=== PATIENT | female | born 1995 | race Native Hawaiian/Other Pacific Islander ===

== ENCOUNTER 2016-12-26 19:09 | Observation (INO) | payer MEDICAID ==
[2016-12-26] MEDS ORDERED: Lactated Ringers 1,000 ML IV ONE (20:51)
[2016-12-26] MEDS ORDERED: Ketorolac 30 MG/ML SDV IVPUSH ONE (20:52)
[2016-12-26] MEDS: Sodium Chloride 0.9% 10 ML Syringe FLUSH PRN (20:58)
[2016-12-26] MEDS ORDERED: Ondansetron 4 MG Tab.DIS PO ONE (21:00)
--- NOTE | 2016-12-26 21:06 | EDM.PDOC ---
ED HISTORY OF PRESENT ILLNESS - General Chief Complaint: Respiratory Problem Stated Complaint: DIFFICULTY BREATHING Time Seen by Provider: 12/26/16 19:45 Source: Reports: Patient, RN History Limitations: Reports: No limitations - History of Present Illness INITIAL COMMENTS - FREE TEXT/NARRATIVE: 21 yo female presents with a 4 days hx of respiratory sx's. Initially, she thought it was just a cold. Did have a fever initially, and took acetaminophen for this, but has not taken any for a couple days. This morning developed pleuritic L upper chest pain associated with some subjective SOB. She has a cough with some abdominal wall tenderness from coughing. Cough non-productive. No recent calf pain or LE edema. No dysuria. Symptom Onset Date: 12/22/16 Timing/Duration: Reports: Day(s): Severity: moderate Location, General: Reports: chest (L upper) Quality: Reports: Sharp, Stabbing Improves with: Reports: None Worsens with: Reports: Breathing Context, General: Reports: Other (URI sx's for 4 days) Associated Symptoms: Reports: chest pain, cough, fever/chills (now resolved.), nausea/vomiting (nausea only today without vomiting.), shortness of breath Treatment(s) PRODUCTION ADMINISTRATIVE ASSISTANT: Reports: Acetaminophen (none for over 2 days.) - Related Data Allergies/ADRs: Allergies Allergy/AdvReac Type Severity Reaction Status Date / Time No Known Allergies Allergy Verified 12/26/16 19:19 Home Meds: Home Meds Ibuprofen [Motrin] 400 mg PO QID PRN 12/26/16 [History] Levofloxacin [Levaquin] 500 mg PO Q24H #7 tablet 12/26/16 [Rx] Ondansetron [Zofran ODT] 4 mg PO Q6H PRN #7 tab.dis 12/26/16 [Rx] guaiFENesin [Robitussin] 100 mg PO Q6H 12/26/16 [History] Past Medical History - Past Health History Medical/Surgical History: Denies Medical/Surgical History Social & Family History - Tobacco Use Smoking Status *Q: Current Every Day Smoker Years of Tobacco use: 10 Packs/Tins Daily: 0.5 Second Hand Smoke Exposure: Yes - Caffeine Use Caffeine Use: Reports: Soda - Alcohol Use Days Per Week of Alcohol Use: 0 - Recreational Drug Use Recreational Drug Use: No ED ROS GENERAL - Review of Systems Review Of Systems: See Below Constitutional: Reports: fever, chills. Denies: weakness, fatigue, night sweats , diaphoresis, decreased appetite HEENT: Reports: Rhinitis. Denies: Dental pain, Ear discharge, Ear pain, Eye discharge, Hearing loss, Nosebleed, Nose pain, Sinus problem, Throat pain, Throat swelling, Vertigo, Vision change Respiratory: Reports: shortness of breath, pleuritic chest pain, cough. Denies : wheezing, sputum, hemoptysis Cardiovascular: Reports: No symptoms Endocrine: Reports: no symptoms GI/Abdominal: Reports: Abdominal pain (abdominal wall with coughing only. ), Nausea. Denies: Anorexia, Black stool, Bloody stool, Constipation, Diarrhea, Decreased appetite, Distension, Flatus, Hematemesis, Hematochezia, Melena, Stool incontinence, Vomiting : Reports: no symptoms Musculoskeletal: Reports: no symptoms Skin: Reports: no symptoms Neurological: Reports: no symptoms Psychiatric: Reports: No symptoms ED EXAM, GENERAL - Physical Exam Exam: See Below Exam Limited By: No limitations General Appearance: alert, WD/WN, no apparent distress Eye Exam: bilateral eye: normal inspection, PERRL Ears: normal external exam, normal canal, hearing grossly normal, normal TMs Ear Exam: bilateral ear: auricle normal, canal normal, TM normal Nose: normal inspection, normal mucosa, no blood Throat/Mouth: Normal inspection, Normal lips, Normal oropharynx, Normal voice, No airway compromise Head: atraumatic, normocephalic Neck: normal inspection, supple, non-tender Respiratory/Chest: no respiratory distress, lungs clear, normal breath sounds, no accessory muscle use, chest non-tender Cardiovascular: regular rate, rhythm, no edema, tachycardia GI/Abdominal: normal bowel sounds, soft, non tender, no distention Back Exam: normal inspection, full range of motion, CVA tenderness (L). No: CVA tenderness (R) Extremities: normal inspection, normal range of motion, non-tender, no pedal edema Neurological: alert, oriented, CN II-XII intact, normal cognition, normal reflexes, no motor/sensory deficits Psychiatric: normal affect, normal mood Skin Exam: Warm, Dry, Intact, Normal color, No rash Lymphatic: no adenopathy Course - Vital Signs Text/Narrative:: LR 1000 ml IV, Toradol 30 mg IV, Zofran ODT 4 mg SL CXR(per Dr. Helm) negative CT abd with contrast-negative Levaquin 500 mg po Last Recorded V/S: Last Vital Signs Temp 36.7 C 12/26/16 19:22 Pulse 138 H 12/26/16 19:22 Resp 20 12/26/16 19:22 BP 120/46 L 12/26/16 19:22 Pulse Ox 99 12/26/16 19:22 - Orders/Labs/Meds Orders: Active Orders 24 hr Category Date Time Status Abdomen w Cont [CT] Stat Exams 12/26/16 21:28 Ordered CXR [Chest 2V] [CR] Stat Exams 12/26/16 19:53 Taken CULTURE BLOOD [BC] Routine Lab 12/26/16 21:05 Received CULTURE BLOOD [BC] Urgent Lab 12/26/16 21:00 Received CULTURE URINE [RM] Stat Lab 12/26/16 21:28 Ordered Lactated Ringers [Ringers, Lactated] 1,000 ml Med 12/26/16 20:51 Active IV BOLUS Sodium Chloride 0.9% [Saline Flush] Med 12/26/16 20:57 Active 10 ml FLUSH ASDIRECTED PRN Saline Lock Insert [OM.PC] Routine Oth 12/26/16 20:57 Ordered Medication Orders Lactated Ringer's (Ringers, Lactated) 1,000 mls @ 1,000 mls/hr IV BOLUS ONE Stop: 12/26/16 21:50 Last Admin: 12/26/16 21:00 Dose: 1,000 mls/hr Sodium Chloride (Saline Flush) 10 ml FLUSH ASDIRECTED PRN PRN Reason: Keep Vein Open Last Admin: 12/26/16 20:58 Dose: 10 ml Labs: Laboratory Tests 12/26/16 12/26/16 12/26/16 Range/Units 19:36 20:05 20:15 WBC 30.7 H* (4.5-12.0) X10-3/uL RBC 5.01 (3.23-5.20) x10(6)uL Hgb 15.3 (11.5-15.5) g/dL Hct 44.7 (30.0-51.3) % MCV 89.2 (80-96) fL MCH 30.6 (27.7-33.6) pg MCHC 34.3 (32.2-35.4) g/dL RDW 11.8 (11.5-15.5) % Plt Count 306 (125-369) X10(3)uL MPV 7.3 L (7.4-10.4) fL Add Manual Diff Yes Neutrophils % (Manual) 89 H (46-82) % Band Neutrophils % 3 (0-6) % Lymphocytes % (Manual) 4 L (13-37) % Monocytes % (Manual) 3 L (4-12) % Basophils % (Manual) 1 (0-2) % D-Dimer, Quantitative (100-400) ng/mL Lactic Acid (0.5-2.2) mmol/L Amylase (28-100) U/L Urine Color Yellow (YELLOW) Urine Appearance Clear (CLEAR) Urine pH 5.0 (5.0-6.5) Ur Specific [place] 1.010 (1.010-1.025) Urine Protein Trace (NEGATIVE) mg/dL Urine Glucose (UA) Normal (NEGATIVE) mg/dL Urine Ketones 15 H (NEGATIVE) mg/dL Urine Occult Blood Negative (NEGATIVE) Urine Nitrite Negative (NEGATIVE) Urine Bilirubin Small H (NEGATIVE) Urine Urobilinogen Normal (NEGATIVE) mg/dL Ur Leukocyte Esterase Negative (NEGATIVE) Urine RBC 0-5 (0) Urine WBC 0-5 (0) Ur Squamous Epith Cells Moderate H (NS,R,O) Urine Bacteria Few H (NS) Urine HCG, Qual Negative (NEGATIVE) 12/26/16 12/26/16 12/26/16 Range/Units 20:15 20:15 21:00 WBC (4.5-12.0) X10-3/uL RBC (3.23-5.20) x10(6)uL Hgb (11.5-15.5) g/dL Hct (30.0-51.3) % MCV (80-96) fL MCH (27.7-33.6) pg MCHC (32.2-35.4) g/dL RDW (11.5-15.5) % Plt Count (125-369) X10(3)uL MPV (7.4-10.4) fL Add Manual Diff Neutrophils % (Manual) (46-82) % Band Neutrophils % (0-6) % Lymphocytes % (Manual) (13-37) % Monocytes % (Manual) (4-12) % Basophils % (Manual) (0-2) % D-Dimer, Quantitative 368 (100-400) ng/mL Lactic Acid 2.2 (0.5-2.2) mmol/L Amylase 51 (28-100) U/L Urine Color (YELLOW) Urine Appearance (CLEAR) Urine pH (5.0-6.5) Ur Specific [place] (1.010-1.025) Urine Protein (NEGATIVE) mg/dL Urine Glucose (UA) (NEGATIVE) mg/dL Urine Ketones (NEGATIVE) mg/dL Urine Occult Blood (NEGATIVE) Urine Nitrite (NEGATIVE) Urine Bilirubin (NEGATIVE) Urine Urobilinogen (NEGATIVE) mg/dL Ur Leukocyte Esterase (NEGATIVE) Urine RBC (0) Urine WBC (0) Ur Squamous Epith Cells (NS,R,O) Urine Bacteria (NS) Urine HCG, Qual (NEGATIVE) Meds: Medications Generic Name Dose Route Start Last Admin Trade Name Freq PRN Reason Stop Dose Admin Lactated Ringer's 1,000 mls @ 1,000 mls/hr 12/26/16 20:51 12/26/16 21:00 Ringers, Lactated IV 12/26/16 21:50 1,000 mls/hr BOLUS ONE Administration Sodium Chloride 10 ml 12/26/16 20:57 12/26/16 20:58 Saline Flush FLUSH 10 ml ASDIRECTED PRN Administration Keep Vein Open Discontinued Medications Generic Name Dose Route Start Last Admin Trade Name Freq PRN Reason Stop Dose Admin Ketorolac Tromethamine 30 mg 12/26/16 20:52 12/26/16 21:02 Toradol IVPUSH 12/26/16 20:53 30 mg ONETIME ONE Administration Ondansetron HCl 4 mg 12/26/16 21:00 12/26/16 21:02 Zofran Odt PO 12/26/16 21:01 4 mg ONETIME ONE Administration Departure - Departure Time of Disposition: 22:31 Disposition: Home, Self-Care 01 Condition: fair Clinical Impression: Pleuritic chest pain Leukocytosis Qualifiers: Leukocytosis type: unspecified Qualified Code(s): D72.829 - Elevated white blood cell count, unspecified Forms: ED Department Discharge - My Orders Last 24 Hours: My Active Orders 12/26/16 20:51 Lactated Ringers [Ringers, Lactated] 1,000 ml IV BOLUS 12/26/16 21:28 Abdomen w Cont [CT] Stat CULTURE URINE [RM] Stat - Assessment/Plan Last 24 Hours: My Active Orders 12/26/16 20:51 Lactated Ringers [Ringers, Lactated] 1,000 ml IV BOLUS 12/26/16 21:28 Abdomen w Cont [CT] Stat CULTURE URINE [RM] Stat
[2016-12-26] MEDS ORDERED: Iopamidol 755 Mg/ML 75 ML Bottle IV ONE (21:50)
[2016-12-26] MEDS ORDERED: Levofloxacin 250 MG Tab PO ONE (22:27)
[2016-12-26] MEDS ORDERED: Levofloxacin/Dextrose 5%-Water 500 MG in Premix Bag 1 BAG IV ONE (22:33)
[2016-12-26] MEDS ORDERED: Acetaminophen 325 MG Tab PO PRN (22:35)
[2016-12-26] MEDS ORDERED: Ibuprofen 400 MG Tab PO PRN (22:35)
[2016-12-26] MEDS ORDERED: Ondansetron 4 MG Tab.DIS PO PRN (22:35)
[2016-12-26] MEDS: Lactated Ringers 1,000 ML IV SCH (23:06)
[2016-12-27] MEDS ORDERED: Pneumococcal Polyvalent-23 Vaccine 0.5 ML SDV SUBCUT ONE (00:32)
[2016-12-27] MEDS ORDERED: Flu Vaccine 2016-17(36Mos+)/PF 60 MCG/0.5 ML Syringe IM ONE (00:32)
[2016-12-27] MEDS: Lactated Ringers 1,000 ML IV SCH ×2 (07:55→17:45)
[2016-12-27] MEDS: cefTRIAXone 1 GM in Sodium Chloride 0.9% 50 ML IV SCH (08:04)
--- NOTE | 2016-12-27 08:14 | HP ---
ADMISSION DATE: 12/26/2016 REASON FOR VISIT: Cough, fever, lethargy. HISTORY OF PRESENT ILLNESS: Danielle Walls is a 21-year-old female admitted through the ER. She presented with a 4-day history of increasing respiratory symptoms, complicated cough, respiratory difficulties, shortness of breath, achiness in her left upper chest and left lower chest, fatigability, tiredness. Pain became appreciably worse in nature. A 1/8-hukz-hea-day smoker. Contacts have been limited. PAST MEDICAL HISTORY: Significant for wisdom tooth extraction only. No other operative procedures, hospitalizations, unusual childhood diseases, major injuries, or fractures. SOCIAL HISTORY: Single, significant male partner, works at the [employer]. A 1/7-nbzz-mhw-day smoker. Nil alcohol consumption. No illicit drug use. FAMILY HISTORY: Parents are in good health, as are siblings. No complicating family history issues. REVIEW OF SYSTEMS: CONSTITUTIONAL: Feeling poorly, eating poorly, and drinking poorly. EYES: Sees well. EARS: Hears well. OROPHARYNX: Mild sore throat. Troublesome cough. CHEST: Please see HPI. GASTROINTESTINAL: Regular predictable stools. GENITOURINARY: Good voiding pattern. Less urine output, darker urine. SKIN: No open sores or lesions. ENDOCRINE: No excessive thirst or urination. ALLERGIC: No chronic cough, wheeze, or congestion. PSYCHIATRIC: Mood is stable. PHYSICAL EXAMINATION: VITAL SIGNS: 37.3; 134; pulse 129; blood pressure 102/63, 108/78; 18 is the respiration; O2 saturation 98 and 100 per exam. GENERAL: Young lady, cooperative, conversant, petite. HEENT: Funduscopic benign. Bright TMs. Clear nasal discharge. Mouth and oropharynx clear. Dry mucous membranes. NECK: Benign. Thyroid small. CHEST: Clear on the right side, decreased breath sounds in left anterior chest. HEART: Regular without ectopy or murmur, at 110. ABDOMEN: Benign. No hepatosplenomegaly. GENITOURINARY AND RECTAL: Deferred. EXTREMITIES: Well perfused. SKIN: Without rash. LABORATORY STUDIES: White count 3700, repeat 29.9; Hemoglobin 15.3 and 13.2; neutrophils 89% and 79%. D-dimer normal at 368. Electrolytes unremarkable. Lactic acid 2.2. Urinalysis small urobilinogen, moderate squamous cells. Toxicology positive for benzodiazepines. Chest x-ray, suspected evolving left- sided pneumonia. ASSESSMENT: Complicated cough, fever, lethargy, pneumonia. Negative influenza A and B. PLAN: Medications care and treatment appropriate, azithromycin, Rocephin, complementary care, and well being. Fluids and hydration. Proceed accordingly. /[id number] JENN/BEATRIZ
[2016-12-27] MEDS: Azithromycin 500 MG in Sodium Chloride 0.9% 250 ML IV SCH (09:39)
--- NOTE | 2016-12-27 09:49 | ER ---
DATE SEEN: 12/26/2016 TIME SEEN: The patient was seen at 1945 hours. CHIEF COMPLAINT: Shortness of breath. HISTORY OF PRESENT ILLNESS: This 21-year-old nulliparous, last menstrual period approximately a month ago, not using any form of contraception, [facility], noted to have a cold and cough and was given a cough medicine. She returns today because she is more short of breath. She has generalized abdominal discomfort. No contraception currently. 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 She has slight increased leg pain in the popliteal fossa, right and left. She had her flu shot this last year. Talks with shortness of breath. Respiratory rate is approximately 32. Note, she does have dyspnea on exertion. She is attended by her significant other. She is nulliparous. Heart rate approximately 178. PAST MEDICAL HISTORY: Noncontributory. REVIEW OF SYSTEMS: She denies fever. Denies back pain. Denies headache, neck stiffness, or sinus congestion. Denies sore throat. PHYSICAL EXAMINATION: VITAL SIGNS: Blood pressure 120/46, heart rate 138, respirations initially 20, but later on, were 32, after she had walked a distance. Oxygen saturation 99%, temperature 36.7 degrees centigrade, and weight 61.23 kg. GENERAL: A pleasant short-statured woman, attended by her significant other. HEENT: PERRLA intact. Pharynx without abnormality. She was in a position. She is able to get up and move around. LUNGS: She has coarse breath sounds. She has audible respirations, which were listed by the nurse as 20, but I noted that they were up to 32, especially when she gets up and walks and moves around. Coarse breath sounds with no wheezes. No sonorous rales. ABDOMEN: Mild guarding in upper and lower quadrants. No rebound. No CVA percussion tenderness. PELVIC: Not performed. EXTREMITIES: Lower extremities without tenderness, except for tenderness in the popliteal fossa. No venous dilation or pedal edema. DIAGNOSTIC STUDIES: Chest x-ray does not reveal an infiltrate, but has a trace- to-mild interstitial changes. White count is quite unusual at 30,700 with a differential of 89 PMNs, 3 bands, 4 lymphocytes, 3 monocytes, and basophils 1. D-dimer was 368. Small bilirubin, 15 ketones, and no glycosuria. Urine showed moderate squamous epithelial cells. Urine hCG is negative. Few bacteria in the urine. ASSESSMENT: 1. Rule out pulmonary embolism. 2. Initial concern was the patient had pneumonia because of her dyspnea, but her chest x-ray is not very revealing. 3. She has extensive leukocytosis with neutrophilia and bandemia, etiology indeterminate. Blood culture is pending. Status had been discussed with Dr. Lund. Care has been turned over to Dr. Lund. The patient is started on IV and further studies pending per his discretion. Blood culture is pending. /[id number] NELSON/BEATRIZ JAUREGUI
--- NOTE | 2016-12-27 11:44 | CR ---
INDICATION: Cough, shortness of breath. CHEST: PA and lateral views of the chest revealed infiltrate perihilar on the left in the upper middle lung field compatible with pneumonia. No definite pleural effusion is identified. No other evidence of active disease was identified, with the heart, mediastinum , and bony thorax unremarkable. IMPRESSION: Left upper lobe pneumonia, perihilar. Follow-up to clearing may be warranted. MTDD
[2016-12-28] MEDS: Lactated Ringers 1,000 ML IV SCH (01:51)
[2016-12-28] MEDS: cefTRIAXone 1 GM in Sodium Chloride 0.9% 50 ML IV SCH (07:53)
[2016-12-28] MEDS: Azithromycin 500 MG in Sodium Chloride 0.9% 250 ML IV SCH (08:18)
[2016-12-28] MEDS: Sodium Chloride 0.9% 10 ML Syringe FLUSH PRN ×2 (08:21→08:22)
[2016-12-28 08:42] VITALS: BP 109/53
--- NOTE | 2016-12-29 02:48 | DISCH ---
DISCHARGE DATE: 12/28/2016 Left lower lobe pneumonia with mild respiratory distress. Danielle Walls is a 21-year-old, who was admitted to [facility] with acute onset of respiratory difficulty, complicated cough, low-grade fever, some pleuritic chest pain, and a sense of reduced well-being. Diagnostic studies were complementary. Chest x-ray not confirmed in term for pneumonia, but examination was so. She was placed on IV Rocephin and IV azithromycin, diagnostic studies were performed. Blood cultures were negative. Influenza A and B testing were negative. Fever abated. Clinical improvement was noted. Respiratory difficulty resolved and she made good progress. At the time of discharge, she is comfortable with her care and well being. Discharged home on azithromycin 250 mg 2 tablets today and 1 tablet four days. Complementary care and well being. Follow up zenobia Husain#: [id number] JENN/BEATRIZ
== END 2016-12-28 11:18 | disposition home or self-care (01) ==
LOC: FB.ED 19:09 → FB.MS 22:35
PROVIDERS: ADMIT Emergency Medicine; ATTEND Family Medicine
DX: J18.9 Pneumonia, unspecified organism (principal); M25.562 Pain in left knee; M25.561 Pain in right knee; R10.9 Unspecified abdominal pain; F17.200 Nicotine dependence, unspecified, uncomplicated
CPT/HCPCS: 36415; 71020; 74178; 80048; 80305; 81001; 81025; 82150; 83605; 84443; 85025; 85379; 87040; 87086; 87804; 93005; 96361; 96365; 96366; 96367; 96374; 99285; A9270; G0008; G0009; G0378; J0456; J0696; J1885; J1956; J7050; J7120; Q9967; 90686; 90732

== ENCOUNTER 2017-07-02 14:37 | Emergency (ER) | payer MEDICAID ==
--- NOTE | 2017-07-02 15:00 | EDM.PDOC ---
ED HPI GENERAL MEDICAL PROBLEM - General Chief Complaint: REPACKER Problem Stated Complaint: NAUSEA/VOMITTING Time Seen by Provider: 07/02/17 15:00 Source of Information: Reports: Patient History Limitations: Reports: No Limitations - History of Present Illness INITIAL COMMENTS - FREE TEXT/NARRATIVE: 22 yo F who presents at about 12 weeks gestation with N/V and severe Lower abdominal pain. Patient has had prior h/o miscarriage. Reports that over the past 2 days she has been having worsening nausea with several bouts of non bilious, non bloody vomitus. Associated with decreased appetite. Left Lower abdominal pain started last night and seems to worse now. Rates the abdominal pain as 6/10. Denied any vaginal bleeding. No urinary symptoms. Presented to the ER on account of worsening of symptoms. Onset: Gradual Onset Date: 07/01/17 Duration: Day(s):, Getting Worse Front/Back Body Image: 1 - LLQ abdominal pain Quality: Reports: Sharp Severity: Moderate Worsens with: Reports: None Associated Symptoms: Reports: Loss of Appetite, Nausea/Vomiting, Weakness abd pain Pain Score (Numeric/FACES): 7 - Related Data Allergies Allergy/AdvReac Type Severity Reaction Status Date / Time No Known Allergies Allergy Verified 07/02/17 14:46 Home Meds: Home Meds Amoxicillin 500 mg PO TID #21 tab 07/02/17 [Rx] Vit No.129/Iron/FA [ One Daily Tablet] 1 tab PO DAILY 07/02/17 [History] Promethazine [Phenergan] 25 mg PO Q4H PRN #30 tab 07/02/17 [Rx] Past Medical History - Past Health History Medical/Surgical History: Denies Medical/Surgical History Cardiovascular History: Reports: None REPACKER History: Reports: , Other (See Below) Other OB/BYN History: - Past Surgical History HEENT Surgical History: Reports: Oral Surgery Social & Family History - Family History Family Medical History: Noncontributory - Tobacco Use Smoking Status *Q: Current Every Day Smoker Years of Tobacco use: 10 Packs/Tins Daily: 0.5 Second Hand Smoke Exposure: Yes - Caffeine Use Caffeine Use: Reports: None - Alcohol Use Days Per Week of Alcohol Use: 0 - Recreational Drug Use Recreational Drug Use: No ED ROS GENERAL - Review of Systems Review Of Systems: ROS reveals no pertinent complaints other than HPI. ED EXAM, GI/ABD - Physical Exam Exam: See Below Exam Limited By: No Limitations General Appearance: Alert, WD/WN, No Apparent Distress Eyes: Bilateral: EOMI Ears: Normal External Exam, Normal Canal, Hearing Grossly Normal, Normal TMs Nose: Normal Inspection, Normal Mucosa, No Blood Throat/Mouth: Normal Inspection, Normal Lips, Normal Teeth, Normal Gums Head: Atraumatic, Normocephalic Neck: Normal Inspection, Supple, Non-Tender Respiratory/Chest: No Respiratory Distress, Lungs Clear, Normal Breath Sounds Cardiovascular: Normal Peripheral Pulses, Regular Rate, Rhythm, No Edema, No Gallop, No JVD, No Murmur GI/Abdominal Exam: Normal Bowel Sounds, No Organomegaly, No Distention, No Abnormal Bruit, No Mass, Tender Rectal (Female) Exam: Normal Exam, Normal Rectal Tone Back Exam: Normal Inspection, Full Range of Motion Extremities: Normal Inspection, Normal Range of Motion, Non-Tender, No Pedal Edema Neurological: Alert, Oriented, CN II-XII Intact, Normal Cognition Psychiatric: Normal Affect, Normal Mood Skin Exam: Warm, Dry, Intact, Normal Color, No Rash Lymphatic: No Adenopathy Course - Vital Signs Last Recorded V/S: Last Vital Signs Temp Pulse 94 07/02/17 14:45 Resp 16 07/02/17 14:45 BP 115/76 07/02/17 14:45 Pulse Ox 100 07/02/17 14:45 - Orders/Labs/Meds Orders: Active Orders 24 hr Category Date Time Status OB 1st Tri Sgl 1st Gest [US] Stat Exams 07/02/17 15:32 Taken HCG QUANTITATIVE,SERUM [CHEM] Stat Lab 07/02/17 15:35 Received cefTRIAXone [Rocephin] 1,000 mg Med 07/02/17 16:26 Ordered Sodium Chloride 0.9% [Normal Saline] 50 ml IV ONETIME Medication Orders Ceftriaxone Sodium 1,000 mg/ (Sodium Chloride) 50 mls @ 100 mls/hr IV ONETIME ONE Stop: 07/02/17 16:55 Labs: Laboratory Tests 07/02/17 07/02/17 07/02/17 Range/Units 15:35 15:35 15:40 WBC 21.1 H (4.5-12.0) X10-3/uL RBC 5.23 H (3.23-5.20) x10(6)uL Hgb 16.2 H D (11.5-15.5) g/dL Hct 47.1 D (30.0-51.3) % MCV 90.2 (80-96) fL MCH 31.0 (27.7-33.6) pg MCHC 34.4 (32.2-35.4) g/dL RDW 12.9 (11.5-15.5) % Plt Count 472 H (125-369) X10(3)uL MPV 7.0 L (7.4-10.4) fL Add Manual Diff Yes Neutrophils % (Manual) 86 H (46-82) % Band Neutrophils % 3 (0-6) % Lymphocytes % (Manual) 5 L (13-37) % Monocytes % (Manual) 6 (4-12) % Sodium 134 L (135-145) mmol/L Potassium 3.8 (3.5-5.3) mmol/L Chloride 102 (100-110) mmol/L Carbon Dioxide 20 L (23-29) mmol/L BUN 9 (5-20) mg/dL Creatinine 0.5 L (0.6-1.3) mg/dL Est Cr Clr Drug Dosing 125.69 mL/min Estimated GFR (MDRD) > 60 (>60) BUN/Creatinine Ratio 18.0 (9-20) Glucose 93 (80-116) mg/dL Calcium 9.4 (8.6-10.2) mg/dL Total Bilirubin 0.5 (0.1-1.3) mg/dL AST 21 (5-27) IU/L ALT 17 (14-26) IU/L Alkaline Phosphatase 66 (56-112) IU/L Total Protein 8.1 H (6.0-8.0) g/dL Albumin 4.4 (3.5-5.2) g/dL Globulin 3.7 g/dL Albumin/Globulin Ratio 1.2 Urine Color Yellow (YELLOW) Urine Appearance Cloudy (CLEAR) Urine pH 7.0 H (5.0-6.5) Ur Specific [place] 1.015 (1.010-1.025) Urine Protein Negative (NEGATIVE) mg/dL Urine Glucose (UA) Normal (NEGATIVE) mg/dL Urine Ketones 150 H (NEGATIVE) mg/dL Urine Occult Blood Negative (NEGATIVE) Urine Nitrite Negative (NEGATIVE) Urine Bilirubin Negative (NEGATIVE) Urine Urobilinogen Normal (NEGATIVE) mg/dL Ur Leukocyte Esterase Small H (NEGATIVE) Urine RBC 0-5 (0) Urine WBC 0-5 (0) Ur Squamous Epith Cells Many H (NS,R,O) Urine Bacteria Many H (NS) Meds: Medications Generic Name Dose Route Start Last Admin Trade Name Freq PRN Reason Stop Dose Admin Ceftriaxone Sodium 1,000 mg/ 50 mls @ 100 mls/hr 07/02/17 16:26 Sodium Chloride IV 07/02/17 16:55 ONETIME ONE Discontinued Medications Generic Name Dose Route Start Last Admin Trade Name Freq PRN Reason Stop Dose Admin Sodium Chloride 1,000 mls @ 1,000 mls/hr 07/02/17 15:11 07/02/17 15:45 Normal Saline IV 07/02/17 16:10 1,000 mls/hr .BOLUS ONE Administration Promethazine HCl 12.5 mg/ 50.5 mls @ 200 mls/hr 07/02/17 15:45 Sodium Chloride IV 07/02/17 16:00 ONETIME ONE Promethazine HCl Confirm 07/02/17 15:46 07/02/17 15:59 Phenergan Administered 07/02/17 15:47 12.5 mg Dose Administration 25 mg .ROUTE .STK-MED ONE Departure - Departure Time of Disposition: 16:33 Disposition: Home, Self-Care 01 Condition: Good Clinical Impression: Pain in pelvis, Intrauterine Urinary tract infection Qualifiers: Urinary tract infection type: site unspecified Hematuria presence: without hematuria Qualified Code(s): N39.0 - Urinary tract infection, site not specified Placenta previa Qualifiers: Trimester: second trimester Qualified Code(s): O44.02 - Complete placenta previa NOS or without hemorrhage, second trimester Leukocytosis Qualifiers: Leukocytosis type: unspecified Qualified Code(s): D72.829 - Elevated white blood cell count, unspecified - Discharge Information Prescriptions: Amoxicillin 500 mg PO TID #21 tab Promethazine [Phenergan] 25 mg PO Q4H PRN #30 tab PRN Reason: Pain Instructions: Hyperemesis Gravidarum, Pelvic Pain, Female, Urinary Tract Infection, Adult, Placenta Previa Referrals: Alexander Hairston MD [Primary Care Provider] - Forms: ED Department Discharge Additional Instructions: Follow with PCP/OBGYN in 2 days for repeat CBC and follow up of urine culture Phenergan for nausea Tylenol for abdominal pain Stay hydrated Return if symptoms worsen - Problem List & Annotations (1) Intrauterine SNOMED Code(s): 42649846 Code(s): Z34.90 - ENCNTR FOR SUPRVSN OF NORMAL , UNSP, UNSP TRIMESTER Status: Acute Current Visit: Yes (2) Leukocytosis SNOMED Code(s): 757425216, 001404718 Code(s): D72.829 - ELEVATED WHITE BLOOD CELL COUNT, UNSPECIFIED Status: Acute Priority: Medium Current Visit: Yes Qualifiers: Leukocytosis type: unspecified Qualified Code(s): D72.829 - Elevated white blood cell count, unspecified (3) Pain in pelvis SNOMED Code(s): 46267151 Code(s): R10.2 - PELVIC AND PERINEAL PAIN Status: Acute Priority: Medium Current Visit: Yes (4) Placenta previa SNOMED Code(s): 72556564 Code(s): O44.00 - COMPLETE PLACENTA PREVIA NOS OR WITHOUT HEMOR, UNSP TRI Status: Acute Current Visit: Yes Qualifiers: Trimester: second trimester Qualified Code(s): O44.02 - Complete placenta previa NOS or without hemorrhage, second trimester (5) Urinary tract infection SNOMED Code(s): 67434340 Code(s): N39.0 - URINARY TRACT INFECTION, SITE NOT SPECIFIED Status: Acute Current Visit: Yes Qualifiers: Urinary tract infection type: site unspecified Hematuria presence: without hematuria Qualified Code(s): N39.0 - Urinary tract infection, site not specified - My Orders Last 24 Hours: My Active Orders 07/02/17 15:32 OB 1st Tri Sgl 1st Gest [US] Stat 07/02/17 15:35 HCG QUANTITATIVE,SERUM [CHEM] Stat 07/02/17 16:26 cefTRIAXone [Rocephin] 1,000 mg Sodium Chloride 0.9% [Normal Saline] 50 ml IV ONETIME - Assessment/Plan Last 24 Hours: My Active Orders 07/02/17 15:32 OB 1st Tri Sgl 1st Gest [US] Stat 07/02/17 15:35 HCG QUANTITATIVE,SERUM [CHEM] Stat 07/02/17 16:26 cefTRIAXone [Rocephin] 1,000 mg Sodium Chloride 0.9% [Normal Saline] 50 ml IV ONETIME
[2017-07-02] MEDS ORDERED: Sodium Chloride 0.9% 1,000 ML IV ONE (15:11)
[2017-07-02] MEDS ORDERED: Promethazine 12.5 MG in Sodium Chloride 0.9% 50 ML IV ONE (15:45)
[2017-07-02] MEDS ORDERED: Promethazine 25 MG/ML SDV ONE (15:46)
[2017-07-02] MEDS ORDERED: cefTRIAXone 1,000 MG in Sodium Chloride 0.9% 50 ML IV ONE (16:26)
[2017-07-02 18:17] VITALS: BP 102/57
--- NOTE | 2017-07-03 14:49 | US ---
INDICATION: Abdominal pain, 11 weeks . Child jumped on abdomen. OB ULTRASOUND LIMITED: Multiple ultrasonic images were obtained and revealed a single intrauterine gestation with a viable appearing fetus with heart rate of 148 BPM. There is noted what appears to be a mild degree of placenta previa. This could recede from the internal os during gestation and follow-up is recommended in that regard. A normal amount of amniotic fluid is seen. The cervix is not well visualized. No adnexal mass lesions or free fluid collections were identified. Maternal ovaries were not demonstrated. Gestational age measurements were closely grouped: BPD 14 weeks 1 day. HC 13 weeks 6 days. AC 13 weeks 4 days. FL 13 weeks 4 days, averaging 13 weeks 6 days, which is only 1 week 1 day ahead of the LMP GA of 12 weeks 5 days. RUSSELL by ultrasound is 01/01/2018, compared with 01/09/2018 for the LMP RUSSELL. Estimated weight was 77 grams (3 ounces), 85th percentile. IMPRESSION: 1. Placenta previa. 2. Viable appearing fetus with no complicating process post trauma. heart rate 150 BPM. 3. Gestational age of the fetus by ultrasound is 13 weeks 6 days, compatible with an RUSSELL by ultrasound of 01/01/2018, 8 days ahead of the LMP GA. MTDD
== END 2017-07-02 17:40 | disposition home or self-care (01) ==
LOC: FB.ED 14:37
DX: O23.42 Unspecified infection of urinary tract in pregnancy, second trimester (principal); O44.02 Complete placenta previa NOS or without hemorrhage, second trimester; O99.112 Other diseases of the blood and blood-forming organs and certain disorders involving the immune mechanism complicating pregnancy, second trimester; D72.829 Elevated white blood cell count, unspecified; O99.331 Smoking (tobacco) complicating pregnancy, first trimester; F17.210 Nicotine dependence, cigarettes, uncomplicated; Z79.899 Other long term (current) drug therapy; Z3A.12 12 weeks gestation of pregnancy
CPT/HCPCS: 36415; 76801; 80053; 81001; 84702; 85025; 96361; 96365; 96367; 99284; J0696; J2550; J7040; J7050

== ENCOUNTER 2018-01-11 07:02 | Inpatient (IN) | payer MEDICAID ==
[2018-01-11] MEDS ORDERED: Misoprostol 25 MCG (1/4 of 100 MCG) Tab VAG ONE (07:12)
--- NOTE | 2018-01-11 09:03 | PCM.LDHP ---
L&D History of Present Illness - General Date of Service: 01/11/18 Admit Problem/Dx: Patient Status Order with Admit Dx/Problem 01/11/18 07:06 Admission Status [Patient Status] [ADT] Routine Admission Diagnosis/Problem Admission Diagnosis/Problem Source of Information: Patient History Limitations: Reports: No Limitations - Related Data Allergies/Adverse Reactions: Allergies Allergy/AdvReac Type Severity Reaction Status Date / Time No Known Allergies Allergy Verified 01/11/18 07:50 Home Medications: Home Meds Vit No.129/Iron/FA [ One Daily Tablet] 1 tab PO DAILY 07/02/17 [History] Past Medical History - Past Health History Medical/Surgical History: Denies Medical/Surgical History Cardiovascular History: Reports: None Genitourinary History: Reports: UTI, Recurrent LEGAL TRANSCRIPTIONIST History: Reports: , Other (See Below) Other OB/BYN History: Psychiatric History: Reports: Anxiety, Depression - Past Surgical History HEENT Surgical History: Reports: Oral Surgery Social & Family History - Family History Family Medical History: Noncontributory - Tobacco Use Smoking Status *Q: Current Every Day Smoker Years of Tobacco use: 6 Packs/Tins Daily: 0.5 Used Tobacco, but Quit: No Second Hand Smoke Exposure: No - Caffeine Use Caffeine Use: Reports: None - Alcohol Use Days Per Week of Alcohol Use: 0 - Recreational Drug Use Recreational Drug Use: No H&P Review of Systems - Review of Systems: Review Of Systems: ROS reveals no pertinent complaints other than HPI. L&D Exam - Exam Exam: See Below - Vital Signs Vital Signs: Last Vital Signs Temp 97.8 F 01/11/18 07:06 Pulse 114 H 01/11/18 07:30 Resp 18 01/11/18 07:06 BP 131/90 01/11/18 07:06 Pulse Ox 100 01/11/18 07:21 Weight: 78.925 kg - OB Specific Contraction Frequency (min): 0 Contraction Intensity: Mild Movement: Active - Laguna Score Laguna Score Effacement: 31-50% Laguna Score Dilation: 1-2 cm Laguna Score Infant's Station: -1 ,0 - Exam General: Alert, Oriented HEENT: PERRLA, Conjunctiva Clear, EACs Clear, EOMI, Hearing Intact, Mucosa Moist & [place], Nares Patent, Normal Nasal Septum, Posterior Pharynx Clear, TMs Clear Neck: Supple, Trachea Midline Lungs: Clear to Auscultation, Normal Respiratory Effort Cardiovascular: Regular Rate, Regular Rhythm GI/Abdominal Exam: Normal Bowel Sounds, Soft, Non-Tender, No Organomegaly, No Distention, No Abnormal Bruit, No Mass, Pelvis Stable Rectal Exam: Normal Exam, Normal Rectal Tone Genitourinary: Normal external exam, Normal bimanual exam, Normal speculum exam Back Exam: Normal Inspection, Full Range of Motion Extremities: Normal Inspection, Normal Range of Motion, Non-Tender, No Pedal Edema, Normal Capillary Refill Skin: Warm, Dry, Intact Neurological: Cranial Nerves Intact, Reflexes Equal Bilateral Psychiatric: Alert, Normal Affect, Normal Mood - Problem List (1) Anxiety and depression SNOMED Code(s): 224715130 ICD Code: F41.9 - ANXIETY DISORDER, UNSPECIFIED; F32.9 - MAJOR DEPRESSIVE DISORDER, SINGLE EPISODE, UNSPECIFIED Status: Acute Current Visit: Yes (2) Intrauterine SNOMED Code(s): 24946369 ICD Code: Z34.90 - ENCNTR FOR SUPRVSN OF NORMAL , UNSP, UNSP TRIMESTER Status: Acute Current Visit: No (3) Elective induction of labor planned SNOMED Code(s): 417742768 ICD Code: NAD1656 - Status: Acute Current Visit: Yes Problem List Initiated/Reviewed/Updated: Yes Orders Last 24hrs: Active Orders 24 hr Category Date Time Status Admission Status [Patient Status] [ADT] Routine ADT 01/11/18 07:06 Active Assessment/Plan Comment:: Cytotec induction and Pit after.
[2018-01-11] MEDS ORDERED: Sodium Chloride 0.9% 10 ML Syringe FLUSH PRN (12:20)
[2018-01-11] MEDS ORDERED: Oxytocin/Normal Saline 10 UNIT/1,000 ML BAG IV SCH (12:30)
[2018-01-11] MEDS: Lactated Ringers 1,000 ML IV SCH ×2 (13:04→18:57)
[2018-01-11] MEDS ORDERED: fentaNYL 100 MCG/2 ML SDV EPIDUR ONE (15:35)
[2018-01-11] MEDS ORDERED: fentaNYL 300 MCG in Ropivacaine 200 ML EPIDUR ONE (15:35)
[2018-01-11] MEDS ORDERED: ePHEDrine 50 MG/ML SDV ONE (16:54)
[2018-01-11] MEDS ORDERED: Naloxone 0.4 MG/ML SDV ONE (16:55)
[2018-01-11] MEDS ORDERED: Naloxone 0.4 MG in Sodium Chloride 0.9% 100 ML IV PRN (17:02)
[2018-01-11] MEDS ORDERED: Naloxone 0.4 MG/ML SDV IVPUSH PRN (17:02)
[2018-01-11] MEDS ORDERED: Promethazine 25 MG/ML SDV IV PRN (17:02)
[2018-01-11] MEDS ORDERED: ePHEDrine 50 MG/ML SDV IVPUSH PRN (17:02)
[2018-01-11] MEDS ORDERED: hydrOXYzine HCl 50 MG/ML SDV IM PRN ×2 (17:02)
[2018-01-11] MEDS ORDERED: diphenhydrAMINE 50 MG/ML SDV IVPUSH PRN (17:02)
[2018-01-11] MEDS ORDERED: Ondansetron 4 MG/2 ML SDV IVPUSH PRN (17:08)
[2018-01-12] MEDS ORDERED: Citric Acid/Sodium Citrate Solution 30 ML Cup PO ONE
[2018-01-12] MEDS ORDERED: ceFAZolin 2 GM in Premix Bag 1 BAG IV ONE ×2
[2018-01-12] MEDS ORDERED: Scopolamine 1.5 MG Transdermal Patch ONE (00:08)
[2018-01-12] MEDS ORDERED: Citric Acid/Sodium Citrate Solution 30 ML Cup ONE (00:09)
[2018-01-12] MEDS ORDERED: ceFAZolin 2 GM in Sodium Chloride 0.9% 50 ML IV ONE (00:34)
[2018-01-12] MEDS ORDERED: ceFAZolin 1 GM Vial ONE (00:34)
[2018-01-12] MEDS ORDERED: Naloxone 0.4 MG/ML SDV IVPUSH PRN ×2 (01:54→02:19)
[2018-01-12] MEDS ORDERED: ePHEDrine 50 MG/ML SDV IVPUSH PRN (01:54)
[2018-01-12] MEDS ORDERED: diphenhydrAMINE 50 MG/ML SDV IVPUSH PRN (01:54)
[2018-01-12] MEDS ORDERED: Ondansetron 4 MG/2 ML SDV IVPUSH PRN (02:19)
[2018-01-12] MEDS ORDERED: Promethazine 6.25 MG in Sodium Chloride 0.9% 50 ML IV PRN (02:19)
[2018-01-12] MEDS ORDERED: Nalbuphine 10 MG/1 ML Vial IVPUSH PRN (02:19)
[2018-01-12] MEDS ORDERED: diphenhydrAMINE 50 MG/ML SDV IV PRN (02:19)
[2018-01-12] MEDS: Morphine 2 MG/ML Syringe IVPUSH PRN ×2 (02:42→11:01)
[2018-01-12] MEDS: Ketorolac 15 MG/ML SDV IVPUSH PRN ×3 (03:05→18:54)
[2018-01-12] MEDS: Lactated Ringers 1,000 ML IV SCH ×3 (04:00→18:55)
[2018-01-12] MEDS ORDERED: Scopolamine 1.5 MG Transdermal Patch TOP ONE ×2 (12:00)
--- NOTE | 2018-01-12 12:58 | OR ---
DATE OF OPERATION: 01/12/2018 SURGEON: Alexander Hairston MD OPERATION: Primary . EXERCISE SPECIALIST: Dr. Mcclelland. INDICATION: distress. POSTOPERATIVE DIAGNOSES: 1. Cephalopelvic disproportion. 2. Thick meconium stained amniotic fluid. INDICATION/PATIENT PREFERENCE/PERMIT: The patient accepted the risks and benefits of this procedure. ANESTHESIA: Epidural. ESTIMATED BLOOD LOSS: 900 mL. COMPLICATIONS: None. FINDINGS: A male infant with of 9 and 9, cephalic presentation. Normal uterus, tubes, and ovaries were noted. PROCEDURE IN DETAIL: The patient was taken to the operating room where the epidural anesthesia was found to be adequate. She was prepped and draped in the usual sterile fashion in the dorsal supine position with the left painter tilt. A Pfannenstiel incision was made with scalpel and carried through the underlying layer of fascia using the scalpel. The fascia was incised in the midline and extended laterally with Bonilla scissors. Jareth clamps were used to elevate the superior aspect of the fascial incision, which was elevated, underlying muscles were dissected bluntly and using Bonilla scissors. Attention was turned to the inferior portion, which was repeated in a similar fashion. The rectus muscles were in the midline. The peritoneum was entered bluntly. After good visualization of the bladder, a bladder blade was inserted. Vesicouterine peritoneum was identified with pickups and entered sharply with Pete scissors. The incision was extended laterally and a bladder flap was created digitally. The bladder blade was reinserted. The lower uterine segment was incised in a transverse fashion using a scalpel and extended with manual traction. Thick stained meconium fluid was noted. The infant was subsequently delivered atraumatically. The nose and mouth were wiped and bulb suctioned. The cord was clamped and cut. The was handed to the waiting Nursery nurse. The cord blood was obtained and subsequent to this, the placenta was removed spontaneously with an intact 3-vessel cord noted. The uterus was exteriorized, cleared of all clots and debris. The uterine incision was repaired in 2 layers with difficulty identifying the posterior aspect of the incision and they are seemed to be an extension to the vagina. Hemostasis was visualized after a [id number] was placed in one of the areas. The uterus was then returned to the maternal abdomen. The pelvis was copiously irrigated. The uterine incision was reexamined and was noted to be hemostatic. The fascia was closed then with 0 Vicryl and subcutaneous layer was closed with 3-0 plain Vicryl. Sponge, lap, and instrument counts were correct x2. The patient was stable at the completion of the procedure and was subsequently transferred to the recovery room in stable condition. /[id number] TN/MARIONL
--- NOTE | 2018-01-12 13:35 | PN ---
DATE SEEN: 01/12/2018 CHIEF COMPLAINT: Labor. HISTORY OF PRESENT ILLNESS: A 22-year-old primigravida at 40 weeks plus. She was admitted for induction yesterday. Artificial rupture of membranes was done about 1900 hours. Prior to that, the patient had exhibited some decelerations with contractions that recovered spontaneously. The patient continued to show good variability through the night. There were some recurrent decelerations, despite position changes, IV fluids, and oxygenation, and at midnight, I made the decision to take the patient for for a nonreassuring heart rate. She was about 6 cm dilated at that time. She accepted the risks and benefits of the procedure and reasonable alternatives. I feel that she is remote from delivery and the baby may not be able to tolerate oxytocin and the second stage of labor. I spent 45 minutes in and out of the room with [id number] counseling with the family, and the patient and they were agreeable with the plan. /[id number] ADRIENNE/BEATRIZ
[2018-01-12] MEDS ORDERED: Acetaminophen/HYDROcodone 325-5 MG Tab PO PRN (23:00)
[2018-01-12] MEDS: Ibuprofen 600 MG Tab PO SCH (23:05)
[2018-01-13] MEDS: Ibuprofen 600 MG Tab PO SCH ×4 (04:58→22:56)
--- NOTE | 2018-01-13 21:08 | PCM.PNPP ---
- General Info Date of Service: 01/13/18 Functional Status: Reports: Pain Controlled, Tolerating Diet - Review of Systems General: Reports: No Symptoms HEENT: Reports: No Symptoms Pulmonary: Reports: No Symptoms Cardiovascular: Reports: No Symptoms - General Info Date of Service: 01/13/18 - Patient Data Vital Signs - Most Recent: Last Vital Signs Temp 97.4 F 01/13/18 08:01 Pulse 100 01/13/18 16:00 Resp 16 01/13/18 16:00 BP 118/68 01/13/18 16:00 Pulse Ox 100 01/13/18 16:00 Weight - Most Recent: 78.925 kg I&O - Last 24 Hours: Intake & Output 01/13/18 01/13/18 01/13/18 06:59 14:59 22:59 Intake Total 180 480 Output Total 2825 Balance -2645 480 Med Orders - Current: Current Medications Hydrocodone Bitart/Acetaminophen ([place] 325-5 Mg) 1 tab PO Q4H PRN PRN Reason: Breakthrough Pain Ibuprofen (Motrin) 600 mg PO Q6H BALDO Last Admin: 01/13/18 17:22 Dose: 600 mg Sodium Chloride (Saline Flush) 10 ml FLUSH ASDIRECTED PRN PRN Reason: Keep Vein Open Last Admin: 01/13/18 00:35 Dose: 10 ml Discontinued Medications Cefazolin Sodium (Ancef) Confirm Administered Dose 2 gm .ROUTE .STK-MED ONE Stop: 01/12/18 00:35 Last Admin: 01/12/18 03:27 Dose: Not Given Citric Acid/Sodium Citrate (Bicitra Solution) Confirm Administered Dose 30 ml .ROUTE .STK-MED ONE Stop: 01/12/18 00:10 Last Admin: 01/12/18 04:06 Dose: Not Given Citric Acid/Sodium Citrate (Bicitra Solution) 30 ml PO ONETIME ONE Stop: 01/12/18 00:01 Last Admin: 01/12/18 00:15 Dose: 30 ml Diphenhydramine HCl (Benadryl) 25 mg IVPUSH ASDIRECTED PRN PRN Reason: PRURITUS Last Admin: 01/11/18 17:48 Dose: 25 mg Diphenhydramine HCl (Benadryl) 25 mg IVPUSH Q6H PRN PRN Reason: Itching or Nausea Diphenhydramine HCl (Benadryl) 25 mg IV ONETIME PRN PRN Reason: Pruritus Stop: 01/13/18 01:00 Ephedrine Sulfate (Ephedrine Sulfate) Confirm Administered Dose 50 mg .ROUTE .STK-MED ONE Stop: 01/11/18 16:55 Last Admin: 01/12/18 01:54 Dose: Not Given Ephedrine Sulfate (Ephedrine Sulfate) 5 mg IVPUSH ASDIRECTED PRN PRN Reason: HYPOTENSION Ephedrine Sulfate (Ephedrine Sulfate) 5 mg IVPUSH ASDIRECTED PRN PRN Reason: Other Hydroxyzine HCl (Vistaril) 0 mg IM Q6H PRN PRN Reason: PRURITIS Hydroxyzine HCl (Vistaril) 0 mg IM Q4H PRN PRN Reason: N/V Lactated Ringer's (Ringers, Lactated) 1,000 mls @ 125 mls/hr IV ASDIRECTED BALDO Last Admin: 01/12/18 08:15 Dose: 125 mls/hr Oxytocin/Sodium Chloride (Pitocin In Ns 10 Units/1,000 Ml) 10 unit in 1,000 mls @ 12 mls/hr IV TITRATE BALDO; Protocol Last Titration: 01/11/18 21:47 Dose: 0 munits/min, 0 mls/hr Naloxone HCl 0.4 mg/ Sodium (Chloride) 101 mls @ 25 mls/hr IV ASDIRECTED PRN PRN Reason: PER ORDER OF ANESTHESIA Cefazolin Sodium/Dextrose 2 gm (/ Premix) 50 mls @ 100 mls/hr IV ONETIME ONE Stop: 01/12/18 00:29 Last Admin: 01/12/18 00:45 Dose: 100 mls/hr Lactated Ringer's (Ringers, Lactated) 1,000 mls @ 250 mls/hr IV ASDIRECTED BALDO Last Admin: 01/12/18 18:55 Dose: 250 mls/hr Promethazine HCl 6.25 mg/ (Sodium Chloride) 50.25 mls @ 200 mls/hr IV Q6H PRN PRN Reason: Nausea/Vomiting Ketorolac Tromethamine (Toradol) 15 mg IVPUSH Q6H PRN PRN Reason: Pain Stop: 01/13/18 01:00 Last Admin: 01/12/18 18:54 Dose: 15 mg Misoprostol (Cytotec) 25 mcg VAG ONETIME ONE Stop: 01/11/18 07:13 Last Admin: 01/11/18 08:26 Dose: 25 mcg Morphine Sulfate (Morphine) 2 mg IVPUSH Q1H PRN PRN Reason: Pain Stop: 01/13/18 01:00 Last Admin: 01/12/18 11:01 Dose: 2 mg Nalbuphine HCl (Nubain) 10 mg IVPUSH Q1H PRN PRN Reason: Pruritus Naloxone HCl (Narcan) Confirm Administered Dose 0.4 mg .ROUTE .STK-MED ONE Stop: 01/11/18 16:56 Last Admin: 01/12/18 01:54 Dose: Not Given Naloxone HCl (Narcan) 0.1 mg IVPUSH ASDIRECTED PRN PRN Reason: RESPIRATORY STATUS Naloxone HCl (Narcan) 0.1 mg IVPUSH ONETIME PRN PRN Reason: Respiratory Depression Naloxone HCl (Narcan) 0.1 mg IVPUSH ONETIME PRN PRN Reason: Oversedation Ondansetron HCl (Zofran) 4 mg IVPUSH Q6H PRN PRN Reason: NAUSEA/VOMITING Ondansetron HCl (Zofran) 4 mg IVPUSH Q6H PRN PRN Reason: Nausea/Vomiting Promethazine HCl (Phenergan) 6.25 - 12.5 mg IV Q4H PRN PRN Reason: NAUSEA AND VOMITING Scopolamine (Transderm-Scop) Confirm Administered Dose 1.5 mg .ROUTE .STK-MED ONE Stop: 01/12/18 00:09 Last Admin: 01/12/18 04:06 Dose: Not Given Scopolamine (Transderm-Scop) 1.5 mg TOP ONETIME ONE Stop: 01/12/18 12:01 Scopolamine (Transderm-Scop) 1.5 mg TOP ONETIME ONE Stop: 01/12/18 00:01 Last Admin: 01/12/18 00:15 Dose: 1.5 mg - Infant Interaction Disposition, : in Room with Family Support Person: Significant Other, Friend - Recovery Exam Fundal Tone: Firm Fundal Level: At Umbilicus Fundal Placement: Midline Lochia Amount: Small Lochia Color: Rubra/Red Perineum Description: Intact, Minimal Bruising/Swelling Episiotomy/Laceration: None Bladder Status: Voiding Urinary Elimination: Voided - Exam General: Alert, Oriented HEENT: Pupils Equal Neck: Supple Lungs: Clear to Auscultation, Normal Respiratory Effort Cardiovascular: Regular Rate, Regular Rhythm GI/Abdominal Exam: Normal Bowel Sounds, Soft, Non-Tender, No Organomegaly, No Distention, No Abnormal Bruit, No Mass, Pelvis Stable Extremities: Normal Inspection, Normal Range of Motion, Non-Tender, No Pedal Edema, Normal Capillary Refill Skin: Warm, Dry, Intact Wound/Incisions: Healing Well Neurological: No New Focal Deficit Psy/Mental Status: Alert, Normal Affect, Normal Mood - Problem List & Annotations (1) Anxiety and depression SNOMED Code(s): 581826160 Code(s): F41.9 - ANXIETY DISORDER, UNSPECIFIED; F32.9 - MAJOR DEPRESSIVE DISORDER, SINGLE EPISODE, UNSPECIFIED Status: Acute Current Visit: Yes (2) Intrauterine SNOMED Code(s): 59112172 Code(s): Z34.90 - ENCNTR FOR SUPRVSN OF NORMAL , UNSP, UNSP TRIMESTER Status: Acute Current Visit: No (3) Elective induction of labor planned SNOMED Code(s): 560916889 Code(s): BDW8337 - Status: Acute Current Visit: Yes (4) delivery delivered SNOMED Code(s): 024373327 Code(s): O82 - ENCOUNTER FOR DELIVERY WITHOUT INDICATION Status: Acute Current Visit: Yes - Problem List Review Problem List Initiated/Reviewed/Updated: Yes - My Orders Last 24 Hours: My Active Orders 01/12/18 23:00 Acetaminophen/HYDROcodone [[place] 325-5 MG] 1 tab PO Q4H PRN Ibuprofen [Motrin] 600 mg PO Q6H 01/13/18 Breakfast Regular Diet [DIET] - Plan Plan:: DC IVF. Ambulate. Pain control by [place]. Doing well..
[2018-01-14] MEDS: Ibuprofen 600 MG Tab PO SCH ×4 (05:03→22:35)
[2018-01-14] MEDS ORDERED: Docusate Sodium 100 MG Cap PO ONE (06:27)
--- NOTE | 2018-01-14 06:27 | PCM.PNPP ---
- General Info Date of Service: 01/14/18 Functional Status: Reports: Pain Controlled - Review of Systems General: Reports: No Symptoms HEENT: Reports: No Symptoms Pulmonary: Reports: No Symptoms Cardiovascular: Reports: No Symptoms Gastrointestinal: Reports: Constipation Genitourinary: Reports: No Symptoms - General Info Date of Service: 01/14/18 - Patient Data Vital Signs - Most Recent: Last Vital Signs Temp 98.6 F 01/14/18 00:00 Pulse 109 H 01/14/18 00:00 Resp 18 01/14/18 00:00 BP 123/79 01/14/18 00:00 Pulse Ox 98 01/14/18 00:00 Weight - Most Recent: 78.925 kg I&O - Last 24 Hours: Intake & Output 01/13/18 01/13/18 01/14/18 14:59 22:59 06:59 Intake Total 480 Balance 480 Med Orders - Current: Current Medications Hydrocodone Bitart/Acetaminophen ([place] 325-5 Mg) 1 tab PO Q4H PRN PRN Reason: Breakthrough Pain Ibuprofen (Motrin) 600 mg PO Q6H BALDO Last Admin: 01/14/18 05:03 Dose: 600 mg Sodium Chloride (Saline Flush) 10 ml FLUSH ASDIRECTED PRN PRN Reason: Keep Vein Open Last Admin: 01/13/18 00:35 Dose: 10 ml Discontinued Medications Cefazolin Sodium (Ancef) Confirm Administered Dose 2 gm .ROUTE .STK-MED ONE Stop: 01/12/18 00:35 Last Admin: 01/12/18 03:27 Dose: Not Given Citric Acid/Sodium Citrate (Bicitra Solution) Confirm Administered Dose 30 ml .ROUTE .STK-MED ONE Stop: 01/12/18 00:10 Last Admin: 01/12/18 04:06 Dose: Not Given Citric Acid/Sodium Citrate (Bicitra Solution) 30 ml PO ONETIME ONE Stop: 01/12/18 00:01 Last Admin: 01/12/18 00:15 Dose: 30 ml Diphenhydramine HCl (Benadryl) 25 mg IVPUSH ASDIRECTED PRN PRN Reason: PRURITUS Last Admin: 01/11/18 17:48 Dose: 25 mg Diphenhydramine HCl (Benadryl) 25 mg IVPUSH Q6H PRN PRN Reason: Itching or Nausea Diphenhydramine HCl (Benadryl) 25 mg IV ONETIME PRN PRN Reason: Pruritus Stop: 01/13/18 01:00 Ephedrine Sulfate (Ephedrine Sulfate) Confirm Administered Dose 50 mg .ROUTE .STK-MED ONE Stop: 01/11/18 16:55 Last Admin: 01/12/18 01:54 Dose: Not Given Ephedrine Sulfate (Ephedrine Sulfate) 5 mg IVPUSH ASDIRECTED PRN PRN Reason: HYPOTENSION Ephedrine Sulfate (Ephedrine Sulfate) 5 mg IVPUSH ASDIRECTED PRN PRN Reason: Other Hydroxyzine HCl (Vistaril) 0 mg IM Q6H PRN PRN Reason: PRURITIS Hydroxyzine HCl (Vistaril) 0 mg IM Q4H PRN PRN Reason: N/V Lactated Ringer's (Ringers, Lactated) 1,000 mls @ 125 mls/hr IV ASDIRECTED BALDO Last Admin: 01/12/18 08:15 Dose: 125 mls/hr Oxytocin/Sodium Chloride (Pitocin In Ns 10 Units/1,000 Ml) 10 unit in 1,000 mls @ 12 mls/hr IV TITRATE [facility]; Protocol Last Titration: 01/11/18 21:47 Dose: 0 munits/min, 0 mls/hr Naloxone HCl 0.4 mg/ Sodium (Chloride) 101 mls @ 25 mls/hr IV ASDIRECTED PRN PRN Reason: PER ORDER OF ANESTHESIA Cefazolin Sodium/Dextrose 2 gm (/ Premix) 50 mls @ 100 mls/hr IV ONETIME ONE Stop: 01/12/18 00:29 Last Admin: 01/12/18 00:45 Dose: 100 mls/hr Lactated Ringer's (Ringers, Lactated) 1,000 mls @ 250 mls/hr IV ASDIRECTED BALDO Last Admin: 01/12/18 18:55 Dose: 250 mls/hr Promethazine HCl 6.25 mg/ (Sodium Chloride) 50.25 mls @ 200 mls/hr IV Q6H PRN PRN Reason: Nausea/Vomiting Ketorolac Tromethamine (Toradol) 15 mg IVPUSH Q6H PRN PRN Reason: Pain Stop: 01/13/18 01:00 Last Admin: 01/12/18 18:54 Dose: 15 mg Misoprostol (Cytotec) 25 mcg VAG ONETIME ONE Stop: 01/11/18 07:13 Last Admin: 01/11/18 08:26 Dose: 25 mcg Morphine Sulfate (Morphine) 2 mg IVPUSH Q1H PRN PRN Reason: Pain Stop: 01/13/18 01:00 Last Admin: 01/12/18 11:01 Dose: 2 mg Nalbuphine HCl (Nubain) 10 mg IVPUSH Q1H PRN PRN Reason: Pruritus Naloxone HCl (Narcan) Confirm Administered Dose 0.4 mg .ROUTE .STK-MED ONE Stop: 01/11/18 16:56 Last Admin: 01/12/18 01:54 Dose: Not Given Naloxone HCl (Narcan) 0.1 mg IVPUSH ASDIRECTED PRN PRN Reason: RESPIRATORY STATUS Naloxone HCl (Narcan) 0.1 mg IVPUSH ONETIME PRN PRN Reason: Respiratory Depression Naloxone HCl (Narcan) 0.1 mg IVPUSH ONETIME PRN PRN Reason: Oversedation Ondansetron HCl (Zofran) 4 mg IVPUSH Q6H PRN PRN Reason: NAUSEA/VOMITING Ondansetron HCl (Zofran) 4 mg IVPUSH Q6H PRN PRN Reason: Nausea/Vomiting Promethazine HCl (Phenergan) 6.25 - 12.5 mg IV Q4H PRN PRN Reason: NAUSEA AND VOMITING Scopolamine (Transderm-Scop) Confirm Administered Dose 1.5 mg .ROUTE .STK-MED ONE Stop: 01/12/18 00:09 Last Admin: 01/12/18 04:06 Dose: Not Given Scopolamine (Transderm-Scop) 1.5 mg TOP ONETIME ONE Stop: 01/12/18 12:01 Scopolamine (Transderm-Scop) 1.5 mg TOP ONETIME ONE Stop: 01/12/18 00:01 Last Admin: 01/12/18 00:15 Dose: 1.5 mg - Interaction Infant Disposition, : [place] in Room with Family Support Person: Significant Other, Friend - Recovery Exam Fundal Tone: Firm Fundal Level: At Umbilicus Fundal Placement: Midline Lochia Amount: Scant Lochia Color: Rubra/Red Perineum Description: Intact, Minimal Bruising/Swelling Episiotomy/Laceration: None Bladder Status: Voiding Urinary Elimination: Voided - Exam General: Alert, Oriented HEENT: Pupils Equal Neck: Supple Lungs: Clear to Auscultation, Normal Respiratory Effort Cardiovascular: Regular Rate, Regular Rhythm GI/Abdominal Exam: Normal Bowel Sounds, Soft, Non-Tender, No Organomegaly, No Distention, No Abnormal Bruit, No Mass, Pelvis Stable Extremities: Normal Inspection, Normal Range of Motion, Non-Tender, No Pedal Edema, Normal Capillary Refill Skin: Warm, Dry, Intact Wound/Incisions: Healing Well Neurological: No New Focal Deficit Psy/Mental Status: Alert, Normal Affect, Normal Mood - Problem List & Annotations (1) Anxiety and depression SNOMED Code(s): 682934314 Code(s): F41.9 - ANXIETY DISORDER, UNSPECIFIED; F32.9 - MAJOR DEPRESSIVE DISORDER, SINGLE EPISODE, UNSPECIFIED Status: Acute Current Visit: Yes (2) Intrauterine SNOMED Code(s): 81150826 Code(s): Z34.90 - ENCNTR FOR SUPRVSN OF NORMAL , UNSP, UNSP TRIMESTER Status: Acute Current Visit: No (3) Elective induction of labor planned SNOMED Code(s): 063407852 Code(s): MPH5540 - Status: Acute Current Visit: Yes (4) delivery delivered SNOMED Code(s): 984944162 Code(s): O82 - ENCOUNTER FOR DELIVERY WITHOUT INDICATION Status: Acute Current Visit: Yes (5) Constipation SNOMED Code(s): 96805070 Code(s): K59.00 - CONSTIPATION, UNSPECIFIED Status: Acute Current Visit: Yes Qualifiers: Constipation type: unspecified constipation type Qualified Code(s): K59.00 - Constipation, unspecified - Problem List Review Problem List Initiated/Reviewed/Updated: Yes - My Orders Last 24 Hours: My Active Orders 01/13/18 23:30 Vital Signs [RC] QSHIFT 01/13/18 Breakfast Regular Diet [DIET] - Plan Plan:: DC IVF. Ambulate. Pain control by Bonaparte. Doing well.Try Colace
[2018-01-15] MEDS: Ibuprofen 600 MG Tab PO SCH (05:31)
--- NOTE | 2018-01-15 08:03 | PCM.PNPP ---
- General Info Date of Service: 01/15/18 Functional Status: Reports: Pain Controlled, Tolerating Diet - Review of Systems General: Reports: No Symptoms HEENT: Reports: No Symptoms Pulmonary: Reports: No Symptoms Cardiovascular: Reports: No Symptoms Gastrointestinal: Reports: No Symptoms Genitourinary: Reports: No Symptoms Musculoskeletal: Reports: No Symptoms Skin: Reports: No Symptoms Neurological: Reports: No Symptoms Psychiatric: Reports: No Symptoms - General Info Date of Service: 01/15/18 - Patient Data Vital Signs - Most Recent: Last Vital Signs Temp 98.6 F 01/15/18 00:00 Pulse 88 01/15/18 00:00 Resp 18 01/15/18 00:00 BP 115/72 01/15/18 00:00 Pulse Ox 100 01/15/18 00:00 Weight - Most Recent: 78.925 kg Med Orders - Current: Current Medications Hydrocodone Bitart/Acetaminophen ([place] 325-5 Mg) 1 tab PO Q4H PRN PRN Reason: Breakthrough Pain Ibuprofen (Motrin) 600 mg PO Q6H BALDO Last Admin: 01/15/18 05:31 Dose: 600 mg Sodium Chloride (Saline Flush) 10 ml FLUSH ASDIRECTED PRN PRN Reason: Keep Vein Open Last Admin: 01/13/18 00:35 Dose: 10 ml Discontinued Medications Cefazolin Sodium (Ancef) Confirm Administered Dose 2 gm .ROUTE .STK-MED ONE Stop: 01/12/18 00:35 Last Admin: 01/12/18 03:27 Dose: Not Given Citric Acid/Sodium Citrate (Bicitra Solution) Confirm Administered Dose 30 ml .ROUTE .STK-MED ONE Stop: 01/12/18 00:10 Last Admin: 01/12/18 04:06 Dose: Not Given Citric Acid/Sodium Citrate (Bicitra Solution) 30 ml PO ONETIME ONE Stop: 01/12/18 00:01 Last Admin: 01/12/18 00:15 Dose: 30 ml Diphenhydramine HCl (Benadryl) 25 mg IVPUSH ASDIRECTED PRN PRN Reason: PRURITUS Last Admin: 01/11/18 17:48 Dose: 25 mg Diphenhydramine HCl (Benadryl) 25 mg IVPUSH Q6H PRN PRN Reason: Itching or Nausea Diphenhydramine HCl (Benadryl) 25 mg IV ONETIME PRN PRN Reason: Pruritus Stop: 01/13/18 01:00 Docusate Sodium (Colace) 100 mg PO ONETIME ONE Stop: 01/14/18 06:28 Last Admin: 01/14/18 06:43 Dose: 100 mg Ephedrine Sulfate (Ephedrine Sulfate) Confirm Administered Dose 50 mg .ROUTE .STK-MED ONE Stop: 01/11/18 16:55 Last Admin: 01/12/18 01:54 Dose: Not Given Ephedrine Sulfate (Ephedrine Sulfate) 5 mg IVPUSH ASDIRECTED PRN PRN Reason: HYPOTENSION Ephedrine Sulfate (Ephedrine Sulfate) 5 mg IVPUSH ASDIRECTED PRN PRN Reason: Other Hydroxyzine HCl (Vistaril) 0 mg IM Q6H PRN PRN Reason: PRURITIS Hydroxyzine HCl (Vistaril) 0 mg IM Q4H PRN PRN Reason: N/V Lactated Ringer's (Ringers, Lactated) 1,000 mls @ 125 mls/hr IV ASDIRECTED BALDO Last Admin: 01/12/18 08:15 Dose: 125 mls/hr Oxytocin/Sodium Chloride (Pitocin In Ns 10 Units/1,000 Ml) 10 unit in 1,000 mls @ 12 mls/hr IV TITRATE BALDO; Protocol Last Titration: 01/11/18 21:47 Dose: 0 munits/min, 0 mls/hr Naloxone HCl 0.4 mg/ Sodium (Chloride) 101 mls @ 25 mls/hr IV ASDIRECTED PRN PRN Reason: PER ORDER OF ANESTHESIA Cefazolin Sodium/Dextrose 2 gm (/ Premix) 50 mls @ 100 mls/hr IV ONETIME ONE Stop: 01/12/18 00:29 Last Admin: 01/12/18 00:45 Dose: 100 mls/hr Lactated Ringer's (Ringers, Lactated) 1,000 mls @ 250 mls/hr IV ASDIRECTED BALDO Last Admin: 01/12/18 18:55 Dose: 250 mls/hr Promethazine HCl 6.25 mg/ (Sodium Chloride) 50.25 mls @ 200 mls/hr IV Q6H PRN PRN Reason: Nausea/Vomiting Ketorolac Tromethamine (Toradol) 15 mg IVPUSH Q6H PRN PRN Reason: Pain Stop: 01/13/18 01:00 Last Admin: 01/12/18 18:54 Dose: 15 mg Misoprostol (Cytotec) 25 mcg VAG ONETIME ONE Stop: 01/11/18 07:13 Last Admin: 01/11/18 08:26 Dose: 25 mcg Morphine Sulfate (Morphine) 2 mg IVPUSH Q1H PRN PRN Reason: Pain Stop: 01/13/18 01:00 Last Admin: 01/12/18 11:01 Dose: 2 mg Nalbuphine HCl (Nubain) 10 mg IVPUSH Q1H PRN PRN Reason: Pruritus Naloxone HCl (Narcan) Confirm Administered Dose 0.4 mg .ROUTE .STK-MED ONE Stop: 01/11/18 16:56 Last Admin: 01/12/18 01:54 Dose: Not Given Naloxone HCl (Narcan) 0.1 mg IVPUSH ASDIRECTED PRN PRN Reason: RESPIRATORY STATUS Naloxone HCl (Narcan) 0.1 mg IVPUSH ONETIME PRN PRN Reason: Respiratory Depression Naloxone HCl (Narcan) 0.1 mg IVPUSH ONETIME PRN PRN Reason: Oversedation Ondansetron HCl (Zofran) 4 mg IVPUSH Q6H PRN PRN Reason: NAUSEA/VOMITING Ondansetron HCl (Zofran) 4 mg IVPUSH Q6H PRN PRN Reason: Nausea/Vomiting Promethazine HCl (Phenergan) 6.25 - 12.5 mg IV Q4H PRN PRN Reason: NAUSEA AND VOMITING Scopolamine (Transderm-Scop) Confirm Administered Dose 1.5 mg .ROUTE .STK-MED ONE Stop: 01/12/18 00:09 Last Admin: 01/12/18 04:06 Dose: Not Given Scopolamine (Transderm-Scop) 1.5 mg TOP ONETIME ONE Stop: 01/12/18 12:01 Scopolamine (Transderm-Scop) 1.5 mg TOP ONETIME ONE Stop: 01/12/18 00:01 Last Admin: 01/12/18 00:15 Dose: 1.5 mg - Infant Interaction Disposition, : [place] in Room with Family Support Person: Significant Other, Friend - Recovery Exam Fundal Tone: Firm Fundal Level: At Umbilicus Fundal Placement: Midline Lochia Amount: Small Lochia Color: Rubra/Red Perineum Description: Intact, Minimal Bruising/Swelling Episiotomy/Laceration: None Bladder Status: Voiding Urinary Elimination: Voided - Exam General: Alert, Oriented HEENT: Pupils Equal Neck: Supple Lungs: Clear to Auscultation, Normal Respiratory Effort Cardiovascular: Regular Rate, Regular Rhythm GI/Abdominal Exam: Normal Bowel Sounds, Soft, Non-Tender, No Organomegaly, No Distention, No Abnormal Bruit, No Mass, Pelvis Stable Extremities: Normal Inspection, Normal Range of Motion, Non-Tender, No Pedal Edema, Normal Capillary Refill Skin: Warm, Dry, Intact Wound/Incisions: Healing Well Neurological: No New Focal Deficit Psy/Mental Status: Alert, Normal Affect, Normal Mood - Problem List & Annotations (1) Anxiety and depression SNOMED Code(s): 762965241 Code(s): F41.9 - ANXIETY DISORDER, UNSPECIFIED; F32.9 - MAJOR DEPRESSIVE DISORDER, SINGLE EPISODE, UNSPECIFIED Status: Acute Current Visit: Yes (2) Intrauterine SNOMED Code(s): 57425788 Code(s): Z34.90 - ENCNTR FOR SUPRVSN OF NORMAL , UNSP, UNSP TRIMESTER Status: Acute Current Visit: No (3) Elective induction of labor planned SNOMED Code(s): 775402001 Code(s): YMS8020 - Status: Acute Current Visit: Yes (4) delivery delivered SNOMED Code(s): 443686216 Code(s): O82 - ENCOUNTER FOR DELIVERY WITHOUT INDICATION Status: Acute Current Visit: Yes (5) Constipation SNOMED Code(s): 92555397 Code(s): K59.00 - CONSTIPATION, UNSPECIFIED Status: Acute Current Visit: Yes Qualifiers: Constipation type: unspecified constipation type Qualified Code(s): K59.00 - Constipation, unspecified (6) Blood loss, postoperative SNOMED Code(s): 109563795 Code(s): KDL7743 - Status: Acute Current Visit: Yes - Problem List Review Problem List Initiated/Reviewed/Updated: Yes - My Orders Last 24 Hours: My Active Orders 01/15/18 08:01 Ready for Discharge [RC] PER UNIT ROUTINE - Plan Plan:: DC home today
--- NOTE | 2018-01-15 08:32 | DISCH ---
DISCHARGE DATE: 01/15/2018 REASON FOR ADMISSION: 1. Induction of labor. 2. Anxiety and depression. DISCHARGE DIAGNOSES: 1. Delivery by section, primary. 2. Mild blood-loss anemia. PROCEDURES: Lower uterine segment on 01/12. BRIEF HISTORY AND HOSPITAL COURSE: This is a 22-year-old female who was admitted for induction of labor at term. This was performed by Cytotec and Pitocin, but the heart rate was nonreassuring with recurrent decelerations. A decision was made to perform on primary . This was done on 01/12/2018. Please see the operative note for details. Postop, she did quite well. She had blood loss during surgery, but hemoglobin was 9.7 postop. She did not have any symptoms. Pain was controlled by Motrin and occasional ibuprofen. Constipation was treated appropriately. She was discharged on January 15. DISCHARGE MEDICATIONS: vitamins. FOLLOWUP: Will be seen in the office in 6 weeks. Please note that I spent more than 35 minutes in the discharge of the patient. /[id number] ADRIENNE/BEATRIZ
[2018-01-15 10:36] VITALS: BP 119/74
== END 2018-01-15 10:25 | disposition home or self-care (01) | DRG 766 ==
LOC: FB.OBCHECK 07:02 → FB.OB 07:04 → FB.OBCHECK 07:05 → FB.OB 07:06 → OBSVTOIN 19:27
PROVIDERS: ADMIT Family Medicine; ATTEND Family Medicine
PROC: 10D00Z1 Extraction of Products of Conception, Low, Open Approach (ICD-10-PCS; principal; 2018-01-12)
PROC: 3E033VJ Introduction of Other Hormone into Peripheral Vein, Percutaneous Approach (ICD-10-PCS; 2018-01-12)
PROC: 3E0P7VZ Introduction of Hormone into Female Reproductive, Via Natural or Artificial Opening (ICD-10-PCS; 2018-01-12)
PROC: 10907ZC Drainage of Amniotic Fluid, Therapeutic from Products of Conception, Via Natural or Artificial Opening (ICD-10-PCS; 2018-01-12)
PROC: 00HU33Z Insertion of Infusion Device into Spinal Canal, Percutaneous Approach (ICD-10-PCS; 2018-01-12)
PROC: 3E0R3BZ Introduction of Anesthetic Agent into Spinal Canal, Percutaneous Approach (ICD-10-PCS; 2018-01-12)
DX: O33.9 Maternal care for disproportion, unspecified (principal); Z37.0 Single live birth; O76 Abnormality in fetal heart rate and rhythm complicating labor and delivery; O77.0 Labor and delivery complicated by meconium in amniotic fluid; O99.344 Other mental disorders complicating childbirth; Z3A.40 40 weeks gestation of pregnancy; F41.8 Other specified anxiety disorders; O99.63 Diseases of the digestive system complicating the puerperium; K59.00 Constipation, unspecified; O90.81 Anemia of the puerperium; D50.0 Iron deficiency anemia secondary to blood loss (chronic); O99.334 Smoking (tobacco) complicating childbirth; F17.200 Nicotine dependence, unspecified, uncomplicated; Z87.440 Personal history of urinary (tract) infections
CPT/HCPCS: 36415; 51701; 51702; 85025; 94150; A9270-GY; J0690; J1200; J1885; J2270; J2590; J2795; J3010; J7050; J7120